=== PATIENT | female | born 1980 | race African-American/Black ===

== ENCOUNTER → 2018-02-23 | Outpatient (CLI) | payer OTHER ==
[~2018-02-23] VITALS: Ht 157.5 cm; Wt 72.6 kg
[~2018-02-23] MED LIST: NEXIUM40 MG PO; ZOLOFT25 MG PO
== END | disposition home or self-care (01) ==
LOC: AMB 09:00
DX: K22.10 Ulcer of esophagus without bleeding (principal); K44.9 Diaphragmatic hernia without obstruction or gangrene; K21.9 Gastro-esophageal reflux disease without esophagitis; R10.32 Left lower quadrant pain; R13.10 Dysphagia, unspecified; R12 Heartburn
CPT/HCPCS: J7643